=== PATIENT | female | born 1950 | race Caucasian/White ===

== ENCOUNTER → 2016-06-11 | Outpatient (CLI) | payer OTHER ==
[~2016-06-11] MED LIST: LEVOTHYROXINE0.05 MG PO; LOPRESSOR50 PO; NORCO 7.5-3251 EACH PO
== END ==
LOC: RAD 02:45 → ULTRA 02:45 → RAD 12:46
DX: E07.9 Disorder of thyroid, unspecified (principal); E04.1 Nontoxic single thyroid nodule

== ENCOUNTER → 2019-07-26 | Outpatient (CLI) | payer OTHER ==
[~2019-07-26] VITALS: Ht 157.5 cm; Wt 93.0 kg
[~2019-07-26] MED LIST changes: +MELATONIN10 M3 PO; +MULTIVITAMINS1 EAC7 PO; +SYNTHROID125 MC1 PO; +VITAMIN B-121000 MC2 PO
--- NOTE | ~2019-07-26 | P ---
[facility] [place] [address] PROCEDURE REPORT Name: NOELLE QUESADA Room #: REG [facility].#: [id number] Admission: 07/26/19 Attend Phys: Louis Rogers Discharge: Date of : 52 Report #: [id number] THIS REPORT FOR: cc: Fer Pinto MD, Neal A. MD McElhinney, Christian C. MD ~ CC: Louis Pinto MD DATE OF SERVICE: 07/26/2019 PROCEDURE PERFORMED: Colonoscopy with biopsies. HISTORY OF PRESENT ILLNESS: The patient is a 69-year-old female with a history of polyps, here for routine followup. She does report intermittent diarrhea after her laparoscopic cholecystectomy several years ago. No family history of colon cancer. DESCRIPTION OF PROCEDURE: The risks and benefits of the procedure were explained to the patient, those risks including but not limited to bleeding, perforation and the risk of sedation. She understood these risks and gave informed consent. Sedation was given using propofol per anesthesia. Next, a digital rectal exam was initially performed, which was normal. Next, using a standard Olympus colonoscope, the scope was placed in the patient's anus and advanced under direct vision to the cecum. The overall prep was excellent. The cecum and ileocecal valve were normal in appearance. Terminal ileum was intubated and normal in appearance. Ascending, transverse and descending colon were normal. Random biopsies were obtained today to rule out the possibility of microscopic colitis. Multiple diverticula were noted in the sigmoid colon, no evidence of inflammation, otherwise normal. The rectal mucosa was normal. On retroflexion, small nonbleeding internal hemorrhoids were noted. The scope was then withdrawn and the procedure terminated. The patient tolerated the procedure well. IMPRESSION: 1. Sigmoid diverticulosis. 2. Internal hemorrhoids. 3. Otherwise, normal colonoscopy. RECOMMENDATIONS: 1. We discussed starting Questran for possible bile salt diarrhea. 2. Await biopsy results. 3. Repeat colonoscopy in 10 years. [facility] [address] [place] [address] PROCEDURE REPORT Name: NOELLE QUESADA Room #: REG LILY Rosado#: [id number] Admission: 07/26/19 Attend Phys: Louis Rogers Discharge: Date of : 52 Report #: [id number] Thank you for allowing me to participate in her care. By: [id number] Louis Saldana MD /nt
--- NOTE | 2019-07-27 14:07 | PATH ---
[facility] [address] [place] [address] PATHOLOGY RPT PROCEDURE Name: KANCHAN QUESADA Room #: REG [facility] Shahid.#: [id number] Admission: 07/26/19 Date of : 52 Discharge: Report #: [id number] Path Case #: [id number] [facility] Accession Number: [id number] . 01 Material submitted: . colon - RANDOM BIOPSIES . 01 Clinical history: . history of polyps, r/o microscopic colitis . 02 Diagnosis: Large intestinal mucosa, random colon, endoscopic biopsy: - Mild active colitis, see comment. - Negative for dysplasia or malignancy. [facility] 07/27/2019 1002 Local . 02 Comment: Sections of the colonic mucosa designated "random colon" show focal cryptitis, and a moderately cellular lamina propria composed predominantly of lymphocytes and plasma cells and occasional eosinophils. Surface ulceration is not identified. There are no crypt abscesses, granulomas or viral inclusions. The process affects all the fragments with a similar intensity. Given the description, the differential diagnosis includes focal active colitis of self limited etiology, infectious-type of etiology, medication/drug induced colitis, as well as active diverticulitis. Please correlate with clinical as well as endoscopic findings. (IUV/db; 07/27/2019) . 02 Electronically signed: . Magdalena Rodriguez MD, Pathologist NPI- [id number] . 01 Gross description: . The specimen is received in formalin, labeled "SangitaJessicah", "random biopsies". Received are multiple segments of pale willett soft tissue ranging in size from 0.1 cm to 0.4 cm. The specimen is entirely submitted in cassette A1.([facility]; 07/26/2019) ABELARDO/DEANN 07/26/2019 1557 Local . 02 Pathologist provided ICD-10: K52.9 . 02 CPT . 447071 Specimen Comment: A courtesy copy of this report has been sent to [phone], [phone], [place] [address] PATHOLOGY RPT PROCEDURE Name: SANGITAJESSICAH Lincoln Room #: REG Lucas Rosado#: [id number] Admission: 07/26/19 Date of : 52 Discharge: Report #: [id number] Path Case #: [id number] Specimen Comment: [id number] Specimen Comment: Report sent to / DR NEWSOME Specimen Comment: A duplicate report has been generated due to demographic updates. Performed at: [address] [facility], [place], [place] [id number] MD Misael Ward MD Phone: [phone] Performed at: [address] [id number] MD Magdalena Rodriguez MD Phone: [phone]
== END | disposition home or self-care (01) ==
LOC: GI 08:20
DX: K52.9 Noninfective gastroenteritis and colitis, unspecified (principal); K57.30 Diverticulosis of large intestine without perforation or abscess without bleeding; K64.8 Other hemorrhoids; I10 Essential (primary) hypertension; K21.9 Gastro-esophageal reflux disease without esophagitis; Z86.010 Personal history of colon polyps; Z98.890 Other specified postprocedural states; Z90.49 Acquired absence of other specified parts of digestive tract; Z79.899 Other long term (current) drug therapy; Z98.42 Cataract extraction status, left eye; Z85.850 Personal history of malignant neoplasm of thyroid; Z98.51 Tubal ligation status; Z94.7 Corneal transplant status

== ENCOUNTER → 2020-07-29 | Outpatient (CLI) | payer OTHER | LOC: SJCVCIMAG 10:43 | PROVIDERS: ATTEND Family Medicine | DX: I08.1 Rheumatic disorders of both mitral and tricuspid valves (principal); I10 Essential (primary) hypertension ==